=== PATIENT | male | born 1995 | race Caucasian/White ===

== ENCOUNTER 2019-02-22 02:18 | Emergency (ER) | payer SELFPAY ==
[2019-02-22] MEDS ORDERED: Lidocaine 2% w/ Epi 1:200K 10 ML VIAL ONE (02:28)
[2019-02-22] MEDS ORDERED: Bacitracin 1 PK ONE (02:55)
[2019-02-22] MEDS ORDERED: Adacel (T-DAP) 0.5 ML SYRINGE ONE (03:03)
== END 2019-02-22 03:20 | disposition home or self-care (01) ==
LOC: BURERS 02:18
DX: S01.81XA Laceration without foreign body of other part of head, initial encounter (principal); Z23 Encounter for immunization; Y04.0XXA Assault by unarmed brawl or fight, initial encounter
CPT/HCPCS: 12013; 90471; 90715